=== PATIENT | male | born 1930 | race Caucasian/White ===

== ENCOUNTER 2018-06-20 08:31 | Outpatient (CLI) | payer MEDICARE, BC ==
[2018-06-20] MEDS ORDERED: Regadenoson 0.4 MG/5 ML SYRINGE ONE (11:10)
--- NOTE | 2018-06-20 13:50 | NM ---
NUCLEAR MEDICINE CARDIAC PERFUSION EXAMINATION WITH EJECTION FRACTION: COMPARISON: None. HISTORY: 87-year-old male with chest pain. TECHNIQUE: A single day nuclear medicine cardiac perfusion examination was performed. Rest images were obtained using 10.3 mCi of technetium-99m sestamibi. Stress images were obtained using 33 mCi of technetium-99 m sestamibi and Adenosine. FINDINGS: Tomographic images show no perfusion defects with stress. Gated images show normal wall motion with a n ejection fraction of 67%. EDV: 103 ml LHR: 0.5 TID: 1.0 IMPRESSION: No evidence of ischemia. POS: [facility]
== END 2018-06-20 08:32 | disposition home or self-care (01) ==
LOC: NM 08:31
PROVIDERS: ATTEND Internal Medicine
DX: R07.9 Chest pain, unspecified (principal)
CPT/HCPCS: 78452; 93017; A9500; 93225; 93226; J2785

== ENCOUNTER 2018-12-02 12:48 | Emergency (ER) | payer MEDICARE, BC ==
[2018-12-02 13:12] LABS: #Basophils 0.1 thou/uL (0.0-0.2); #Eosinphils 0.2 thou/uL (0.0-0.7); #Lymphocytes 1.8 thou/uL (1.20-3.40); #Monocytes 0.4 thou/uL (0.11-0.59); #Neutrophils 4.5 thou/uL (1.40-6.50); %Eosinophils 2.9 % (0.0-10.0); %Lymphocytes 25.3 % (21.0-51.0); %Monocytes 6.3 % (0.0-10.0); %Neutrophils 64.4 % (42.0-75.0); Hemoglobin 11.3 g/dL (14.0-18.0); Mean Corpuscular HGB CONC 32.7 g/dL (32.0-36.0); Mean Corpuscular Hemoglobin 31.6 pg (27.0-31.0); Mean Corpuscular Volume 96.8 fL (78.0-98.0); Mean Platelet Volume 8.5 fL (7.4-10.4); Platelet Count 127 thou/uL (130-400); RBC Distribution Width 12.7 % (11.5-14.5); Red Blood Cell (RBC) Count 3.56 mill/uL (4.70-6.10)
[2018-12-02 13:25] LABS: ALT (SGPT) 18 U/L (8-55); AST (SGOT) 25 U/L (5-34); Albumin 3.9 g/dL (3.4-4.8); Alkaline Phosphatase 79 U/L (40-150); Anion Gap 15 mmol/L (10-20); BUN (Urea Nitrogen) 29 mg/dL (8.4-25.7); Bilirubin, Total 0.4 mg/dL (0.2-1.2); CK (CPK) 172 U/L (30-200); Calc. Creatinine Clearance 0 mL/min (70-130); Calcium 9.1 mg/dL (7.8-10.44); Carbon Dioxide 27 mmol/L (23-31); Chloride 100 mmol/L (98-107); Estimated GFR-MDRD 43; Globulin 3.3 g/dL (2.4-3.5); Glucose 174 mg/dL (83-110); Potassium 4.6 mmol/L (3.5-5.1); Protein, Total 7.2 g/dL (5.8-8.1); Sodium 137 mmol/L (136-145)
[2018-12-02] MEDS ORDERED: Meclizine HCl 25 MG TAB ONE (13:43)
[2018-12-02] MEDS ORDERED: Metoclopramide HCl 10 MG/2 ML VIAL ONE (13:43)
--- NOTE | 2018-12-02 14:14 | CT ---
CT Brain WO Con History: [Dizziness] Comparison: None. Findings: No acute hemorrhage or infarct. No midline shift or mass effect. Mild atrophy. Moderate chr onic microvascular ischemic changes. Calvarium is intact. Paranasal sinuses and mastoids are clear. Impression: Chronic findings. No acute intracranial abnormality.
[2018-12-02 14:16] LABS: Bilirubin Negative (Negative); Blood, Urine Trace (Negative); Clarity Hazy (Clear); Glucose, Urine (Dipstick) Negative (Negative); Leukocyte Large (Negative); Nitrite Negative (Negative); Protein, Urine (Dipstick) Trace mg/dL (Neg-Trace); Specific Gravity, Urine 1.015 (1.005-1.030)
[2018-12-02 14:20] LABS: Bacteria/HPF 3+ HPF (None Seen); RBC/HPF 0-3 HPF (0-3); WBC/HPF 21-50 HPF (0-3)
[2018-12-02] MEDS ORDERED: cefTRIAXone\\ROCEPHIN 2 GM VIAL ONE (14:55)
[2018-12-02] MEDS ORDERED: cefTRIAXone\\ROCEPHIN 1 GM VIAL ONE (14:56)
== END 2018-12-02 18:26 ==
LOC: SCSER 12:48
DX: N39.0 Urinary tract infection, site not specified (principal); E11.9 Type 2 diabetes mellitus without complications; I10 Essential (primary) hypertension
CPT/HCPCS: 36416; 70450; 80053; 81003; 81015; 82550; 84484; 85025; 87077; 87086; 87186; 93005; 94760; 96365; 96366; 96368; J0696; J2765; J8499